=== PATIENT | male | born 2000 | race Caucasian/White ===

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

== ENCOUNTER 2024-07-19 13:18 | Inpatient (IN) | payer OTHER ==
[~2024-07-19] VITALS: Ht 182.9 cm; Wt 67.2 kg
[~2024-07-19 13:18] MED LIST: CYCLOBENZAPRINE10 MG PO
[2024-07-19 13:56] LABS: BASOPHILS 0.5 % (0-2); EOSINOPHILS 0.5 % (0-6); HEMATOCRIT 43.8 % (35.0-50.0); HEMOGLOBIN 15.2 g/dL (12.0-18.0); LYMPHOCYTES 15.1 % (24-44); MCH 29.5 (27-36); MCHC 34.6 g/dl (30-36); MCV 85.3 fl (81-99); MONOCYTES 7.4 % (0-12); NEUTROPHILS 76.5 % (39-80); PLATELET COUNT 338 K/uL (140-440); RBC 5.14 M/ul (4.3-5.7); RDW 12.7 (10.5-15.0)
[2024-07-19] MEDS ORDERED: SEVOFLURANE 250 ML BTL INH ONE (14:47)
[2024-07-19 15:48] LABS: ANION GAP 10.7 (7-21); BUN/CREATININE RATIO 16.04 (6.0-28.6); CALCIUM 9.4 mg/dL (8.5-10.1); CREATININE, SERUM 0.81 mg/dL (0.70-1.30); POTASSIUM 3.7 mmol/L (3.5-5.1)
[2024-07-19] MEDS ORDERED: SODIUM CHLORIDE 0.9% 1,000 ML IV SCH (17:15)
[2024-07-19] MEDS ORDERED: ondansetron HCL 4 MG/2 ML VIAL IV PRN (17:15)
[2024-07-19] MEDS ORDERED: MEROPENEM 500 MG in SODIUM CHLORIDE 0.9% 100 ML IV SCH (18:00)
[2024-07-19 18:06] VITALS: BP 128/68
--- NOTE | 2024-07-19 18:28 | NUR ---
PATIENT ADMITTED TO MED SURG. PATIENT REPORTS 3 /10 RIGHT GROIN PAIN AND SOME REDNESS IN THAT AREA. PATIENT DENIES THAT ICE PACK WOULD HELP. GIRLFRIENTatum CHERRY IS IN ROOM AND PHONE NUMBER IN ON BOARD.
[2024-07-19] MEDS ORDERED: MORPHINE SULFATE 10 MG/ML VIAL IV PRN (19:15)
[2024-07-19] MEDS ORDERED: LACTATED RINGER'S 1,000 ML IV SCH (19:15)
--- NOTE | 2024-07-19 19:24 | NUR ---
REPORT RECEIVED FROM DAY SHIFT RN. PT LYING IN BED ALERT AND ORIENTED. SURGICAL CONSENT SIGNED. NO NEEDS AT THIS TIME. WHITE BOARD UPDATED. CALL LIGHT IN REACH.
[2024-07-19 19:35] VITALS: BP 116/76
[2024-07-19 19:46] VITALS: BP 124/72
[2024-07-19] MEDS ORDERED: LIDOCAINE HCL 2% 5 ML SDV ONE (20:31)
[2024-07-19] MEDS ORDERED: ondansetron HCL 4 MG/2 ML VIAL ONE (20:31)
[2024-07-19] MEDS ORDERED: propofoL 200 MG/20 ML VIAL ONE (20:31)
[2024-07-19] MEDS ORDERED: KETOROLAC TROMETHAMINE 30 MG/ML VIAL ONE (20:31)
[2024-07-19] MEDS ORDERED: fentaNYL citrate 100 MCG/2 ML VIAL ONE (20:32)
--- NOTE | 2024-07-19 20:32 | NUR ---
PT OFF FLOOR WITH PACU NURSE
[2024-07-19] MEDS ORDERED: ACETAMINOPHEN 1,000 MG/100 ML VIAL ONE (20:56)
[2024-07-19] MEDS ORDERED: FAMOTIDINE 20 MG/ 2 ML VIAL IV SCH (21:00)
--- NOTE | 2024-07-19 21:18 | NUR ---
07/19/242117 LUCI REAVES 2103 PT ARRIVED TO PACU VIA STREACHER. REPORT TAKEN FROM KARLA LEBLANC. PT HAS LR AND TYLENOL RUNNING CONTINUOUSLY INTO IV IN LEFT FOREARM. ALL MONITORS ATTACHED. PT HAS ORAL AIRWAY IN PLACE, 6L OF O2 VIA MASK. PT REQUIRES SOME POSITIONION TO MAINTAIN AIRWAY. PT NON RESPONSIVE TO TACTILE STIMULI. 2114 PT BECOMES RESPONSIVE TO TACTILE STIMULI. PT ABLE TO FOLLOW COMMANDS AND OPEN MOUT TO REMOVE ORAL AIRWAY. OXYGEN REMOVED FROM PT, BREATHING EQUAL AND UNLABORED, OXYGEN AT 100% ON RA. PT REPORTS NO PAIN OR NAUSEA AT THIS TIME.
[2024-07-19] MEDS ORDERED: ACETAMINOPHEN 500 MG TAB PO PRN (21:45)
[2024-07-19] MEDS ORDERED: IBUPROFEN 600 MG TAB PO PRN (21:45)
[2024-07-19] MEDS ORDERED: HYDROmorphone HCL 2 MG TAB PO PRN (21:45)
[2024-07-19] MEDS ORDERED: MEROPENEM 2,000 MG in SODIUM CHLORIDE 0.9% 250 ML IV SCH (22:00)
[2024-07-19] MEDS ORDERED: MEROPENEM 1,000 MG in SODIUM CHLORIDE 0.9% 100 ML IV SCH (22:00)
--- NOTE | 2024-07-19 22:05 | NUR ---
PT BACK FROM PACU APPROX 2134. ALERT AND ORIENTED. PT ABLE TO TRANSFER SELF TO BED. VS OBTAINED, WNL. SCD'S/CPOX IN PLACE. RIGHT GROIN DRESSING CDI. PT DENIES PAIN OR NAUSEA. ICE WATER PROVIDED. IVF INFUSING PER ORDER. GIRLFRIEND AT BEDSIDE. NO FURTHER NEEDS AT THIS TIME. CALL LIGHT IN REACH.
[2024-07-19] MEDS ORDERED: NICOTINE 14 MG/24 HR 1 EA TDSY TD SCH (22:30)
[2024-07-19 22:38] VITALS: BP 103/52
--- NOTE | 2024-07-19 22:51 | NUR ---
POST OP VS OBTAINED, WNL. PT DENIES PAIN OR NAUSEA. DANIEL REGULAR DIET. RIGHT GROIN DRESSING CDI. NO NEEDS AT THIS TIME. CALL LIGHT IN REACH.
[2024-07-19 23:27] VITALS: BP 104/46
--- NOTE | 2024-07-19 23:33 | NUR ---
PT AWAKE IN BED. DENIES PAIN OR NAUSEA. POST OP VS OBTAINED, WNL. RIGHT GROIN DRESSING CDI. NO NEEDS AT THIS TIME. CALL LIGHT IN REACH.
[2024-07-20] MEDS ORDERED: MEROPENEM 500 MG VIAL IV SCH
[2024-07-20 00:33] VITALS: BP 104/50
--- NOTE | 2024-07-20 00:34 | NUR ---
PT RESTING WITH EYES CLOSED. AWAKENS EASILY. VS OBTAINED, WNL. PT DENIES PAIN OR NAUSEA. RIGHT GROIN DRESSING CDI. PT DENIES NEEDS. CALL LIGHT IN REACH.
--- NOTE | 2024-07-20 02:33 | NUR ---
PT RESTING IN BED WITH EYES CLOSED. RESPIRATIONS EVEN. SpO2 96% ON RA. HR 60'S. GIRLFRIEND RESTING IN RECLINER AT BEDSIDE. CALL LIGHT IN REACH.
--- NOTE | 2024-07-20 04:05 | NUR ---
PT LYING ON LEFT SIDE IN BED. EYES CLOSED. RESPIRATIONS EVEN. SpO2 96% ON RA. HR 60'S.
[2024-07-20 05:18] VITALS: BP 107/41
[2024-07-20 05:31] VITALS: BP 107/41
--- NOTE | 2024-07-20 05:32 | NUR ---
PT RESTING IN BED WITH EYES CLOSED. AWAKENS EASILY. UP TO BR TO VOID 500 ML CLEAR YELLOW URINE. GAIT STEADY. BACK TO BED, DANIEL WELL. VS AND I&O OBTAINED. PT REPORTS RIGHT GROIN PAIN 07/07. PRN FOR PAIN ADMIN PER EMAR. DRESSING CDI. IV ABX INFUSING PER ORDER. NO FURTHER NEEDS. CALL LIGHT IN REACH.
--- NOTE | 2024-07-20 07:40 | NUR ---
REPORT RECEIVED FROM NIGHT RN - PT RESTING IN BED ON BACK WITH EYES CLOSED, RR EVEN AND UNLABORED. GIRLFRIEND AWAKE IN CHAIR AT BEDSIDE.
--- NOTE | 2024-07-20 08:00 | NUR ---
ASSESSMENT COMPLETE - PT RESTING IN BED AWAKE, DENIES PAIN, STATES HE IS VERY HUNGRY FOR BREAKFAST. I/D SITE DRESSING C/D/I. IV SITE PATENT WITH ABX INFUSING. PT STATES UNDERSTANDING OF PLAN TO SHOWER THIS AM WITH DRESSING REMOVED. DENIES QUESTIONS AT THIS TIME. CALL LIGHT IN REACH.
--- NOTE | 2024-07-20 08:13 | NUR ---
UR CLINICAL REVIEW: JACKIE, MEETS INPT FOR CELLULITIS AND OSTEOMYELITIS IMAGING POSITIVE FOR OSTEOMYELITIS, IV ANTIBIOTICS, IV FLUIDS [facility] INPT 07/19/24 @ 1714 ORDER MATCHES REG AUTH PENDING, WILL SEND CLINICALS VIA RIGHTFAX PLAN TO DC TO HOME WHEN MEDICALLY STABLE 07/22/24
[2024-07-20] MEDS ORDERED: metroNIDAZOLE 250 MG TAB PO SCH (09:15)
[2024-07-20] MEDS ORDERED: DOXYCYCLINE HYCLATE 100 MG CAP PO SCH (09:15)
[2024-07-20] MEDS ORDERED: HYDROMORPHONE HC2 MG PO (09:20)
[2024-07-20] MEDS ORDERED: ACETAMINOPHEN500 MG PO (09:20)
[2024-07-20] MEDS ORDERED: IBUPROFEN600 MG PO (09:20)
[2024-07-20] MEDS ORDERED: DOXYCYCLINE HY100 MG PO (09:20)
[2024-07-20] MEDS ORDERED: METRONIDAZOLE250 MG PO (09:20)
[2024-07-20] MEDS ORDERED: NICOTINE PATCH1 EACH TD (09:20)
[2024-07-20 09:44] VITALS: BP 120/64
--- NOTE | 2024-07-20 10:15 | NUR ---
Spoke with Martin. He lives in a house with 2 steps. Long history with pelvis fx and osteo. Pt does not use DME. So Beckie in the room. Pt does not have a pcp and would like one at [facility]. Pt denies financial issues or safety concerns.
--- NOTE | 2024-07-20 10:35 | NUR ---
DC INSTRUCTIONS PROVIDED TO PT - ALL QUESTIONS ANSWERED. IV SITE REMOVED, CATH INTACT. PT AWAITING PHARMACY.
--- NOTE | 2024-07-20 15:20 | NUR ---
Spoke with PF. Pt scheduled with Brenda Cordova for August 05 at 9:30 am. Chart faxed to [facility] and they will call him to confirm his appt.
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
== END 2024-07-20 11:05 | disposition home or self-care (01) | DRG 603 ==
LOC: ED 13:18 → MS 17:21
PROVIDERS: Emergency Medicine; ADMIT Surgery; ATTEND Surgery
PROC: 0J9C00Z Drainage of Pelvic Region Subcutaneous Tissue and Fascia with Drainage Device, Open Approach (ICD-10-PCS; principal; 2024-07-19 20:00)
DX: L02.214 Cutaneous abscess of groin (principal); Z87.81 Personal history of (healed) traumatic fracture; L03.314 Cellulitis of groin; Z79.899 Other long term (current) drug therapy; Z88.5 Allergy status to narcotic agent
CPT/HCPCS: 00400; 36415; 74177; 76705; 76857; 80048; 85025; 85651; 86140; 87205; A9270; J0131; J1885; J2003; J2185; J2405; J2704; J3010; J7030; Q9967